=== PATIENT | male | born 1995 | race African-American/Black ===

== ENCOUNTER → 2016-08-12 | Outpatient (CLI) | payer BC, OTHER ==
[~2016-08-12] VITALS: Ht 177.8 cm; Wt 125.2 kg
[~2016-08-12] MED LIST: NAPROSYN500 MG PO; NOHOMEMEDICATIONS
--- NOTE | ~2016-08-12 | HPC ---
[facility] [place] [address] PAIN MANAGEMENT CONSULTATION Name: ARVINDDERECKIlan Wu Room #: REG [facility] MMansoor.#: [id number] Admission: 08/12/16 Attend Phys: Raul Jacob DO Discharge: Date of : 95 Report #: [id number] THIS REPORT FOR: //name// CC: Ignacio Jacob The patient is an extremely pleasant 20-year-old gentleman. He has fairly significant spinal stenosis down to about 5.8 mm at L5-S1. He has a 12% spondylolisthesis at this level with bilateral facet arthritis. Last MRI was 05/28/2015. He had two epidural injections in November 2014 with good improvement of baseline pain. He has been stable on Naprosyn 500 mg b.i.d., use of a TENS unit occasionally. He is a fairly muscular young man. He is playing football now, simply plays basketball for recreation. Returns to pain clinic today. Again, last visit was back in October 2015. He notes pain has come back a little bit, primarily low back down the left leg to the knee. Rates his pain perhaps a 6 on a 0-10 visual analog scale, describes as a sharp sensation, exacerbated with standing and sitting. PHYSICAL EXAMINATION: GENERAL: Shows a 20-year-old gentleman, BMI is elevated at 39.6, but again he is a fairly muscular gentleman. Blood pressure is 127/73, pulse 61, respirations are 18. Cranial nerves 2-12 grossly intact. Speech is fluent. Alert and oriented to person, place and time, judged to be a reasonable historian. Upper extremity strength is symmetric. Rises from chair easily. Gait is tandem. Lower extremity strength appears to be generally preserved. Again, as mentioned he is a fairly muscular gentleman, I do no I would note a small loss in strength. He states he is able to do all activities. He can still play sports, he can start stop pivot, so I think strength is actually fairly symmetric. Straight leg raise is nominally positive on the left. Patellar reflexes are symmetric, slight decrease left Achilles reflex. Skin integument is intact. ASSESSMENT: Symptomatic lumbar radiculopathy secondary to spinal stenosis in an otherwise healthy 20-year-old gentleman. RECOMMENDATION: Long discussion with the patient today about therapeutic options. I would like to postpone interventional therapy as able. Again, he notes he is doing pretty well presently. We have elected to simply continue Naprosyn 500 mg b.i.d. 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 Also, suggested that if he is working out and may have a little myoglobinemia, he should try and stay hydrated with any work out issues. The patient was discharged today in good and stable condition. I gave him [address] [address] PAIN MANAGEMENT CONSULTATION Name: DERECK SAMUELSIlan Wu Room #: REG [facility] Colten#: [id number] Admission: 08/12/16 Attend Phys: Raul Jacob DO Discharge: Date of : 95 Report #: [id number] prescription for 500 mg Naprosyn, 60 tablets with five refills. I will be happy to see him on an as needed basis, will certainly see him if symptoms can get worse with consideration for interventional therapy though at 20 years of age with fairly significant stenosis and spondylolisthesis at L5-S1, if symptoms gets significantly problematic he may benefit from decompression and fusion. No interventional therapies are warranted at this time. Discharged in good and stable condition. <ELECTRONICALLY SIGNED> By: Raul Jacob DO 08/13/16 0904 1610 2305 Raul Jacob DO /nt
[2016-08-12 13:06] VITALS: BP 127/73
== END | disposition home or self-care (01) ==
LOC: PAIN 07:16
DX: M48.06 Spinal stenosis, lumbar region (principal); M43.16 Spondylolisthesis, lumbar region; Z87.891 Personal history of nicotine dependence; M46.96 Unspecified inflammatory spondylopathy, lumbar region

== ENCOUNTER 2017-01-14 15:57 | Emergency (ER) | payer BC, OTHER ==
[~2017-01-14] VITALS: Ht 177.8 cm; Wt 99.8 kg
--- NOTE | ~2017-01-14 | EKG ---
[place] [address] [facility] [place] [address] ELECTROCARDIOGRAM REPORT Name: DERECK SAMUELSO Bryce 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
[2017-01-14 17:13] LABS: URINE BILIRUBIN NEGATIVE (Negative); URINE BLOOD NEGATIVE (Negative); URINE COLOR YELLOW; URINE GLUCOSE-RANDOM* NEGATIVE (Negative); URINE KETONES NEGATIVE (Negative); URINE NITRITE NEGATIVE (Negative); URINE PROTEIN (DIPSTICK) TRACE (Negative); URINE UROBILINOGEN 0.2 E.U./dl (0.2-1.0)
[2017-01-14 17:15] LABS: ABSOLUTE NEUTROPHILS 4.7 thou/uL (1.4-8.2); BASOPHILS 0.4 % (0.0-2.0); EOSINOPHILS 0.6 % (0.0-3.0); HEMATOCRIT 41.1 % (42.0-52.0); HEMOGLOBIN 13.2 gm/dL (14.0-18.0); LYMPHOCYTES 24.5 % (24.0-44.0); MANUAL DIFF NO; MCV 75.1 fL (80.0-100.0); MONOCYTES 7.7 % (1.0-8.0); PLATELET COUNT 249 thou/uL (150-400); POLYS 66.8 % (36.0-66.0); RBC 5.47 mil/uL (4.50-6.00); RDW 14.7 % (10.5-14.5)
[2017-01-14 17:21] LABS: AMP/METHAMP Negative (Negative); BARBITURATES Negative (Negative); BENZODIAZEPINES Negative (Negative); COCAINE Negative (Negative); METHADONE Negative (Negative); OPIATES Negative (Negative); PCP Negative (Negative); THC POSITIVE (Negative)
[2017-01-14 17:27] LABS: ANION GAP 8 mmol/L (7-16); BUN 15 mg/dL (7-18); CALCIUM 9.1 mg/dL (8.5-10.1); CHLORIDE 102 mmol/L (98-107); CO2 30 mmol/L (21-32); CREATININE 1.1 mg/dL (0.7-1.3); GLUCOSE 95 mg/dL (74-106); POTASSIUM 3.5 mmol/L (3.5-5.1); SODIUM 140 mmol/L (136-145)
[2017-01-14 17:31] LABS: ALBUMIN 3.9 g/dL (3.4-5.0); ALKALINE PHOSPHATASE 87 U/L (46-116); SALICYLATE < 2.8 mg/dL (2.8-20.0); SGOT 26 U/L (15-37); SGPT 28 U/L (30-65); TOTAL BILIRUBIN 0.4 mg/dL (<0.1-1.0); TOTAL PROTEIN 8.6 g/dL (6.4-8.2)
[2017-01-14 17:46] LABS: ACETAMINOPHEN < 2 ug/mL (10-30)
[2017-01-14] MEDS ORDERED: AMBIEN 5 MG TABL5 M1 PO (20:21)
[2017-01-14 20:37] VITALS: BP 135/64
== END 2017-01-14 20:38 | disposition home or self-care (01) ==
LOC: ER 15:57
PROVIDERS: Physician Assistant
DX: G47.9 Sleep disorder, unspecified (principal); R44.3 Hallucinations, unspecified; F17.210 Nicotine dependence, cigarettes, uncomplicated; F10.99 Alcohol use, unspecified with unspecified alcohol-induced disorder; F12.10 Cannabis abuse, uncomplicated

== ENCOUNTER → 2017-09-07 | Outpatient (CLI) | payer BC, OTHER ==
[~2017-09-07] MED LIST changes: +AMBIEN 5 MG TABL5 M1 PO
== END ==
LOC: RAD 16:39
DX: S99.922A Unspecified injury of left foot, initial encounter (principal); X58.XXXA Exposure to other specified factors, initial encounter; Y93.89 Activity, other specified; Y92.89 Other specified places as the place of occurrence of the external cause; Y99.8 Other external cause status

== ENCOUNTER 2019-09-28 08:48 | Day surgery (SDC) | payer BC, OTHER ==
[~2019-09-28] VITALS: Ht 177.8 cm; Wt 102.1 kg
--- NOTE | ~2019-09-28 | O ---
[facility] [place] [address] OPERATIVE REPORT Name: ASHLEY SAMUELS III Room #: 150-4 [facility]..#: [id number] Admission: 09/28/19 Attend Phys: Uziel Britton MD Discharge: Date of : 95 Report #: [id number] THIS REPORT FOR: cc: Ignacio Avery,Uziel Mcfadden MD ~ CC: Ignacio Britton DATE OF SERVICE: 09/28/2019 PREOPERATIVE DIAGNOSIS: Left Achilles tendon tear. POSTOPERATIVE DIAGNOSIS: Left Achilles tendon tear. PROCEDURE: Left Achilles tendon repair. SURGEON: Dr. Uziel Britton. MONOGRAM MAKER: Nelida Brandt. ANESTHESIA: General. ESTIMATED BLOOD LOSS: Minimal. DRAINS: No drains. TOURNIQUET TIME USE: One hour. DESCRIPTION OF PROCEDURE: The patient brought to the operating room where he was placed under general anesthesia. Once under adequate general anesthesia, he was placed into a prone position on the operative table. The patient's left lower extremity was then prepped and draped in a sterile manner. The extremity was elevated, exsanguinated, tourniquet placed at 300 mmHg. A posterior incision along the Achilles tendon rupture portion was then made. This was approximately 3 cm in length. This was dissected down through soft tissue to the peritenon, which was incised exposing the ruptured tendon. The proximal portion of the tendon was then exposed and freed from the surrounding soft tissue and the pars suture passing instrument was then placed. The pars suture tapes were then placed and subsequently the locking stitches were utilized to lock this portion of the tendon. The sutures were then brought distally out of the wound. Subsequent to this, the drill and tap for the SpeedBridge was then utilized and through these holes the suture passer was then placed from distal to proximal to bring the proximal sutures through to the distal wound. Subsequent fixation into the calcaneus was then achieved with the SpeedBridge anchors on the medial and lateral aspects of the Achilles tendon. An excellent [address] [address] OPERATIVE REPORT Name: ARVINDASHLEY M [facility] Room #: 150-4 [facility] M.R.#: [id number] Admission: 09/28/19 Attend Phys: Uziel Britton MD Discharge: Date of : 95 Report #: [id number] repair had been achieved in satisfactory alignment. The repair itself was oversewn with 0 Vicryl suture. The wound was then irrigated copiously and closed with 2-0 Vicryl with deep and subcutaneous tissues and annita were used for the skin. The wound was dressed with Xeroform, 4 x 4s, and sterile soft compressive dressing was placed along with a short leg cast. Tourniquet was let down at approximately 1 hour. Toes were pink and warm with good capillary refill. There were no complications from the procedure. The patient tolerated the procedure well and went to the recovery room without incident. By: 1025 1104 Uziel Britton MD /nt
[~2019-09-28 08:48] MED LIST changes: +FLAXSEED OIL1000 MG PO; +LISINOPRIL20 MG PO; +NAPROSYN500 M1 PO; +NORCO 5-325 TA1 EAC1 PO
[2019-09-28 09:59] VITALS: BP 137/88
[2019-09-28] MEDS ORDERED: PERCOCET 7.5-31 EAC1 PO (12:01)
[2019-09-28] MEDS ORDERED: ASPIRIN EC325 MG PO (12:02)
[2019-09-28 12:10] VITALS: BP 137/88
--- NOTE | 2019-09-28 16:30 | EKG ---
[facility] [place] [address] ELECTROCARDIOGRAM REPORT Name: ASHLEY SAMUELS III Room #: 150-4 [facility] M.R.#: [id number] Admission: 09/28/19 Attend Phys: Uziel Britton MD Discharge: Date of : 95 Report #: [id number] THIS REPORT FOR: cc: Ignacio Avery James A. DO Lundgren, Craig H. 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1995 Requested By: Uziel Britton Order Number: [id number] MD: Guru Peacock Measurements Intervals [place] Rate: 49 P: -34 VA: 200 QRS: 15 QRSD: 101 T: 1 QT: 449 QTc: 406 Interpretive Statements Sinus bradycardia RSR' in V1 or V2, right VCD Baseline wander in lead(s) V2 Compared to ECG 01/14/2017 17:09:39 No significant change was found Electronically Signed On 09-28-2019 16:29:29 [employer] by Guru Peacock [email or web address] <ELECTRONICALLY SIGNED> By: Guru Peacock MD, [facility] 09/28/19 1629 0910 0910 Guru Peacock MD, [facility] /EPI
== END 2019-09-28 13:05 | disposition home or self-care (01) ==
LOC: OR 08:48 → TBA 08:49 → OR 09:26
DX: S86.012A Strain of left Achilles tendon, initial encounter (principal); I10 Essential (primary) hypertension; F17.210 Nicotine dependence, cigarettes, uncomplicated; Z98.890 Other specified postprocedural states; Z79.899 Other long term (current) drug therapy; X58.XXXA Exposure to other specified factors, initial encounter; Y93.89 Activity, other specified; Y92.89 Other specified places as the place of occurrence of the external cause; Y99.8 Other external cause status
CPT/HCPCS: 50010; 50101; 50386; 51412; 56524; 57091; 57180; 62110; 62900; 70005